=== PATIENT | male | born 1950 | race Caucasian/White ===

== ENCOUNTER 2018-02-06 16:21 | Emergency (ER) | payer BC, MEDICARE ==
--- NOTE | 2018-02-06 17:36 | EDM.PDOC ---
ED HPI GENERAL MEDICAL PROBLEM - General Chief Complaint: Gastrointestinal Problem Stated Complaint: FEEDING TUBE TROUBLE Time Seen by Provider: 02/06/18 17:31 Source of Information: Reports: Patient, Family History Limitations: Reports: No Limitations - History of Present Illness INITIAL COMMENTS - FREE TEXT/NARRATIVE: 67-year-old male has a gastrostomy feeding tube in place October this year. 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 He is just starting to eat now. His voice is returned to normal in his throat is no longer sore. What happened today is the sutures broke where was holding the feeding tube in place on his abdomen. Actually amazing may last as long as needed. So therefore good portion of the feeding tube seen to extrude from the ostomy. I assessment the balloon is still inflated as I cannot extract the feeding tube at this time. He has no pain or discomfort. Onset: Today Onset Date: 02/06/18 Onset Time: 16:30 Duration: Minutes: Location: Reports: Abdomen (Feeding tube came out of its normal position in the abdomen.) Quality: Reports: Other (He is in no pain or discomfort) Improves with: Reports: None Worsens with: Reports: None Context: Denies: Activity, Exercise, Lifting, Sick Contact, Trauma, Other Associated Symptoms: Reports: No Other Symptoms Treatments REVERSE ENGINEER: Reports: Other (see below) (None.) - Related Data Allergies Allergy/AdvReac Type Severity Reaction Status Date / Time No Known Allergies Allergy Verified 01/21/18 09:24 Home Meds: Home Meds Cyanocobalamin (Vitamin B-12) [Vitamin B-12] 1 tab PO DAILY 02/06/18 [History] Magnesium 200 mg PO DAILY 02/06/18 [History] atorvaSTATin Calcium [Atorvastatin Calcium] 80 mg PO DAILY 02/06/18 [History] metFORMIN HCl [Metformin HCl] 1,000 mg PO BID 02/06/18 [History] Past Medical History Cardiovascular History: Reports: High Cholesterol, Hypertension Endocrine/Metabolic History: Reports: Diabetes, Type II Oncologic (Cancer) History: Reports: Other (See Below) Other Oncologic History: throat diagnosed in August of this year. Then was started on radiotherapy and then chemotherapy. He developed such a severe sore throat with inability to swallow that a feeding gastrostomy tube was placed in October of this year. - Past Surgical History HEENT Surgical History: Reports: Other (See Below) Other HEENT Surgeries/Procedures: throat CA GI Surgical History: Reports: Other (See Below) Other GI Surgeries/Procedures: feeding tube Musculoskeletal Surgical History: Reports: Other (See Below) Other Musculoskeletal Surgeries/Procedures:: thumb amputation; left arm fx, surgery Social & Family History - Tobacco Use Smoking Status *Q: Never Smoker - Caffeine Use Caffeine Use: Reports: Coffee - Recreational Drug Use Recreational Drug Use: No - Living Situation & Occupation Living situation: Reports: Occupation: Employed ED ROS GENERAL - Review of Systems Review Of Systems: See Below Constitutional: Reports: Fatigue, Other (Slowly starting to gain weight back.). Denies: Fever, Chills, Malaise, Weakness HEENT: Reports: Other (Laryngeal or primary throat cancer treated with chemotherapy and radiation starting in late August 2017. Required a feeding gastrostomy tube that he is still utilizing. Although he is starting to now be able to swallow soft foods and fluids.) Respiratory: Reports: No Symptoms Cardiovascular: Reports: No Symptoms Endocrine: Reports: No Symptoms GI/Abdominal: Reports: Other (Has a feeding gastrostomy tube mid upper abdomen. The sutures that were holding the tube in place have broken. However when I tug on the tube the balloon is still inflated and it appears to be at least subcutaneous but I cannot tell if it's still in the stomach.) : Reports: No Symptoms Musculoskeletal: Reports: No Symptoms Skin: Reports: No Symptoms Neurological: Reports: No Symptoms ED EXAM, GI/ABD - Physical Exam Exam: See Below Exam Limited By: No Limitations General Appearance: WD/WN, Anxious Eyes: Bilateral: Normal Appearance (No jaundice) GI/Abdominal Exam: Other (Examination was primarily that of the abdomen. The feeding gastrostomy tube has been partially extruded you can see where the tube is very blackened from Hydrocort effect. Approximate 4 inches of the tubing is black. I cannot pull the tube out completely because the balloon is inflated. The problem is knowing whether or not the tube has extruded from the axial stomach. It is unlikely that it has been extruded from the stomach. He should have a well-formed tract after being in place for 3 months. However I will take him to x-ray with plan to place Gastrografin through the feeding tube to make sure that it is not been extruded from the stomach and no extravasation occurs.) Course - Vital Signs Last Recorded V/S: Last Vital Signs Temp 37.1 C 02/06/18 16:45 Pulse 78 02/06/18 16:45 Resp 18 02/06/18 16:45 BP 145/95 H 02/06/18 16:45 Pulse Ox 98 02/06/18 16:45 - Orders/Labs/Meds Orders: Active Orders 24 hr Category Date Time Status Fluoro Up To 1Hr [CR] Stat Exams 02/06/18 17:43 Taken Meds: Medications Discontinued Medications Generic Name Dose Route Start Last Admin Trade Name Freq PRN Reason Stop Dose Admin Diatrizoate Meglum/Diatrizoate Sod 60 ml 02/06/18 17:51 02/06/18 18:12 Gastrografin 37% PO 02/06/18 17:52 60 ml ONETIME ONE Administration Lidocaine HCl 10 ml 02/06/18 18:11 02/06/18 18:16 Xylocaine 1% INJECT 02/06/18 18:12 10 ml ONETIME ONE Administration - Radiology Interpretation Free Text/Narrative:: 67-year-old male presents to the ED with feeding tube problems. He has a feeding tube in place primarily because of development of throat cancer requiring radiotherapy and chemotherapy starting the end of August of this year. He developed such severe sore throat that he was unable to swallow at all and a feeding gastrostomy tube was placed in October of this year. Today the feeding tube moved out of its normal position. Sutures that were holding the tube in place broke from the surface of his skin. The feeding tube appears to be extruded about 4 inches as it is blackened from the effect of HCl in the stomach. However the balloon is still inflated and I cannot pull it out without deflating the balloon. Therefore i'm going to take him to x-ray to use fluoroscopy to identify that the feeding tube is still in adequate position in the stomach. It will then be decided whether or not to either replace the tube or remove it completely. Stability of needing a new feeding tube is evident. - Re-Assessments/Exams Free Text/Narrative Re-Assessment/Exam: 02/06/18 18:45 feeding tube assessment done by way of Gastrografin insertion through the feeding tube under fluoroscopic guidance in the x-ray suite. Initial films suggested that most of the Gastrografin was in the stomach however some of it appeared to possibly extubate state under the skin. I therefore was able to reinsert the feeding tube deep into the stomach with ease. I was unable to instill another 60 mils of Gastrografin and it filled the stomach. There was no extravasation. Patient was therefore brought back to the ED and I sutured the feeding tube to his abdominal wall at the 8 o'clock position compared to where it was sutured prior at the 6 o'clock position. It was sutured 2 to ensure that it does not come out again. Tentatively he may need this feeding tube for another 8-12 weeks. Patient will be discharged to home and allowed to use his feeding tube as per his usual. Departure - Departure Time of Disposition: 18:38 Disposition: Home, Self-Care 01 Condition: Fair Clinical Impression: Complication of feeding tube - Discharge Information Referrals: Flory Curry SHOE DRESSER [Primary Care Provider] - Forms: ED Department Discharge Additional Instructions: Evaluation the emergency room today in regards to dislodgment of feeding tube. Feeding tube is been in place since October after you received chemotherapy and radiotherapy to your throat for cancer treatments. Since you are still using the feeding tube primarily as her source of nutrition we felt it was essential to make sure the feeding tube was in appropriate position. You were therefore taken to the x-ray suite where under fluoroscopy were able to demonstrate a pigtail feeding tube stent in the appropriate position. Gastrografin that was interested instilled through the feeding tube went into the stomach and did not extravasate outside of the stomach. Therefore the feeding tube was pushed back into its presumed original position. I was unable to re-sutured to the abdominal wall 2. Treatment at home is the same as it was before. You make start to use her feeding tube immediately. Follow-up with primary care physician if any further problem's occur. - My Orders Last 24 Hours: My Active Orders 02/06/18 17:43 Fluoro Up To 1Hr [CR] Stat - Assessment/Plan Last 24 Hours: My Active Orders 02/06/18 17:43 Fluoro Up To 1Hr [CR] Stat ED GENERAL MEDICAL PROCEDURES - Additional/Other Procedure(s) Other (Free Text) Procedure(s): Evaluation of feeding tube dislodgment from the midabdomen. Taken to the x-ray suite and Gastrografin was placed through the feeding tube under fluoroscopic assessment to make sure that it had remained within the stomach. It was replaced back into the stomach and further Gastrografin 60 mils instilled. This stayed within the stomach. I then brought the patient back to the ED and sutured the feeding tube to his abdominal wall at the 8 o'clock position compared to where it was sutured prior at the 6 o'clock position.
[2018-02-06] MEDS ORDERED: Diatrizoate Meglumine/Diatrizoate Sodium 37% 120 ML Bottle PO ONE (17:51)
[2018-02-06] MEDS ORDERED: Lidocaine 1% 10 ML MDV INJECT ONE (18:11)
--- NOTE | 2018-02-07 08:33 | CR ---
Abdomen: Contrast has been injected through gastrostomy tube. Contrast is seen within the stomach. This confirms gastric tube is in proper position. Impression: 1. Findings as noted above. Diagnostic code #1
== END 2018-02-06 18:50 | disposition home or self-care (01) ==
LOC: JD.ED 16:21
DX: K94.22 Gastrostomy infection (principal); J02.9 Acute pharyngitis, unspecified; E11.9 Type 2 diabetes mellitus without complications; Z79.899 Other long term (current) drug therapy; Z79.84 Long term (current) use of oral hypoglycemic drugs
CPT/HCPCS: 43752; 76000; 99283; Q9963; 99284

== ENCOUNTER 2018-03-14 09:39 | Emergency (ER) | payer BC, MEDICARE ==
[2018-03-14] MEDS ORDERED: Lidocaine 1% 50 ML MDV INJECT ONE (11:11)
--- NOTE | 2018-03-14 11:14 | EDM.PDOC ---
ED HPI GENERAL MEDICAL PROBLEM - General Chief Complaint: Gastrointestinal Problem Stated Complaint: FEEDING TUBE CHECK Time Seen by Provider: 03/14/18 11:12 Source of Information: Reports: Patient History Limitations: Reports: No Limitations - History of Present Illness INITIAL COMMENTS - FREE TEXT/NARRATIVE: 67-year-old male presents for evaluation and treatment of complications with his feeding tube. 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 Reports last night the tube pulled on some clothing and the sutures holding in place came out. He states that it has not gone out any further than normal. The balloon is still in place. He has been using that and has not had any complications. He is primarily here for suture placement. Patient goes to [facility] for management of his laryngeal carcinoma. Plans to go there on Saturday further management of his G-tube. Patient reports he is taking foods and fluids orally but does not have much taste. patient reports primary care provider is Mica Curry. - Related Data Allergies Allergy/AdvReac Type Severity Reaction Status Date / Time No Known Allergies Allergy Verified 03/14/18 09:50 Home Meds: Home Meds Cyanocobalamin (Vitamin B-12) [Vitamin B-12] 1 tab PO DAILY 02/06/18 [History] Magnesium 200 mg PO DAILY 02/06/18 [History] atorvaSTATin Calcium [Atorvastatin Calcium] 80 mg PO DAILY 02/06/18 [History] metFORMIN HCl [Metformin HCl] 1,000 mg PO BID 02/06/18 [History] Past Medical History Cardiovascular History: Reports: High Cholesterol, Hypertension Endocrine/Metabolic History: Reports: Diabetes, Type II Oncologic (Cancer) History: Reports: Other (See Below) Other Oncologic History: throat diagnosed in August of this year. Then was started on radiotherapy and then chemotherapy. He developed such a severe sore throat with inability to swallow that a feeding gastrostomy tube was placed in October of this year. - Past Surgical History HEENT Surgical History: Reports: Other (See Below) Other HEENT Surgeries/Procedures: throat CA GI Surgical History: Reports: Other (See Below) Other GI Surgeries/Procedures: feeding tube Musculoskeletal Surgical History: Reports: Other (See Below) Other Musculoskeletal Surgeries/Procedures:: thumb amputation; left arm fx, surgery Social & Family History - Tobacco Use Smoking Status *Q: Never Smoker - Caffeine Use Caffeine Use: Reports: Coffee - Recreational Drug Use Recreational Drug Use: No - Living Situation & Occupation Living situation: Reports: Occupation: Employed ED ROS GENERAL - Review of Systems Review Of Systems: ROS reveals no pertinent complaints other than HPI. ED EXAM, GI/ABD - Physical Exam Exam: See Below Exam Limited By: No Limitations General Appearance: Alert, WD/WN, No Apparent Distress Respiratory/Chest: No Respiratory Distress GI/Abdominal Exam: Normal Bowel Sounds, Soft, Non-Tender, Other (Gastrostomy tube present to the medial right upper quadrant. Placement is satisfactory) Neurological: Alert, Oriented, Normal Cognition Psychiatric: Normal Affect, Normal Mood Skin Exam: Warm, Dry, Normal Color ED LACERATION PROCEDURES - Laceration/Wound Repair Ventral Abdomen Local Anesthetic Volume: 2cc Skin Prep: Chlorhexidine (Hibiciens) Suture Size: 4-0 # of Sutures: 2 Suture Type: Prolene, Simple Complications: No Course - Vital Signs Last Recorded V/S: Last Vital Signs Temp 98.2 F 03/14/18 09:48 Pulse 95 03/14/18 09:48 Resp 16 03/14/18 09:48 BP 179/85 H 03/14/18 09:48 Pulse Ox 99 03/14/18 09:48 - Orders/Labs/Meds Meds: Medications Discontinued Medications Generic Name Dose Route Start Last Admin Trade Name Donal PRN Reason Stop Dose Admin Lidocaine HCl 50 ml 03/14/18 11:11 03/14/18 11:48 Xylocaine 1% INJECT 03/14/18 11:12 50 ml ONETIME ONE Administration - Re-Assessments/Exams Free Text/Narrative Re-Assessment/Exam: 03/14/18 12:08 G-tube was secured with 2 sutures. Patient tolerated this well. No complications. Secured around the 7 o'clock position. Discharge instructions as documented. Departure - Departure Time of Disposition: 12:08 Disposition: Home, Self-Care 01 Condition: Good Clinical Impression: Complication of feeding tube - Discharge Information *PRESCRIPTION DRUG MONITORING PROGRAM REVIEWED*: No *COPY OF PRESCRIPTION DRUG MONITORING REPORT IN PATIENT SATISH: No Instructions: How to Care for a Feeding Tube, [id number] Referrals: Flory Curry BACK DIGGER OPERATOR [Primary Care Provider] - Forms: ED Department Discharge Additional Instructions: Recommend normal maintenance to your her G-tube. Recommend washing the area where the sutures are placed with gentle soap and water. May apply antibacterial ointment such as Neosporin or bacitracin. Continue with your current plan of care. Please return to the ER if your symptoms change or worsen.
== END 2018-03-14 12:33 | disposition home or self-care (01) ==
LOC: JD.ED 09:39
DX: K94.20 Gastrostomy complication, unspecified (principal); E11.9 Type 2 diabetes mellitus without complications; I10 Essential (primary) hypertension; Z79.899 Other long term (current) drug therapy
CPT/HCPCS: 99283

== ENCOUNTER 2018-04-02 12:23 | Emergency (ER) | payer BC, MEDICARE ==
--- NOTE | 2018-04-02 13:22 | EDM.PDOC ---
ED HPI GENERAL MEDICAL PROBLEM - General Chief Complaint: General Stated Complaint: STITCHES NEEDED IN FEEDING TUBE Time Seen by Provider: 04/02/18 12:42 Source of Information: Reports: Patient History Limitations: Reports: No Limitations - History of Present Illness INITIAL COMMENTS - FREE TEXT/NARRATIVE: Patient is a 68-year-old male with history of throat cancer who has a feeding tube in place. States he accidentally broke one of the sutures holding the feeding tube in place and is requesting having new sutures placed to hold the feeding tube in place so that it does not become dislodged. States the feeding tube is in proper positioning. It has not been dislodged with the recent breaking of a suture. He has no discomfort. No bleeding present. This is his third time he's broken a suture in the 3rd time he's been evaluated in the ED to have sutures placed. They're expecting the feeding tube will come out in one month. He offers no additional complaints. - Related Data Allergies Allergy/AdvReac Type Severity Reaction Status Date / Time No Known Allergies Allergy Verified 03/14/18 09:50 Home Meds: Home Meds Cyanocobalamin (Vitamin B-12) [Vitamin B-12] 1 tab PO DAILY 02/06/18 [History] Magnesium 200 mg PO DAILY 02/06/18 [History] atorvaSTATin Calcium [Atorvastatin Calcium] 80 mg PO DAILY 02/06/18 [History] metFORMIN HCl [Metformin HCl] 1,000 mg PO BID 02/06/18 [History] Past Medical History Cardiovascular History: Reports: High Cholesterol, Hypertension Endocrine/Metabolic History: Reports: Diabetes, Type II Oncologic (Cancer) History: Reports: Other (See Below) Other Oncologic History: throat diagnosed in August of this year. Then was started on radiotherapy and then chemotherapy. He developed such a severe sore throat with inability to swallow that a feeding gastrostomy tube was placed in October of this year. - Past Surgical History HEENT Surgical History: Reports: Other (See Below) Other HEENT Surgeries/Procedures: throat CA GI Surgical History: Reports: Other (See Below) Other GI Surgeries/Procedures: feeding tube Musculoskeletal Surgical History: Reports: Other (See Below) Other Musculoskeletal Surgeries/Procedures:: thumb amputation; left arm fx, surgery Social & Family History - Tobacco Use Smoking Status *Q: Never Smoker - Caffeine Use Caffeine Use: Reports: Coffee - Recreational Drug Use Recreational Drug Use: No - Living Situation & Occupation Living situation: Reports: Occupation: Employed ED ROS GENERAL - Review of Systems Review Of Systems: ROS reveals no pertinent complaints other than HPI. ED EXAM, GENERAL - Physical Exam Exam: See Below Exam Limited By: No Limitations General Appearance: Alert, WD/WN, No Apparent Distress Ears: Hearing Grossly Normal Nose: Normal Inspection Throat/Mouth: Normal Voice, No Airway Compromise Neck: Normal Inspection, Supple Respiratory/Chest: No Respiratory Distress, No Accessory Muscle Use Cardiovascular: Normal Peripheral Pulses, Regular Rate, Rhythm Peripheral Pulses: 2+: Radial (L) GI/Abdominal: Other (Feeding in place with old sutures present on the feeding tube. Feeding tube is not secured down. No pain with palpation. Per patient feeding tube is in proper positioning and has not been dislodged. Previous sites to the abdomen where sutures were holding the tube in place are in the late stages of healing with no concerns for infection. No bleeding, swelling. ) Neurological: Alert, Oriented, CN II-XII Intact, Normal Cognition Psychiatric: Normal Affect, Normal Mood Skin Exam: Warm, Dry, Normal Color ED GENERAL MEDICAL PROCEDURES - Additional/Other Procedure(s) Other (Free Text) Procedure(s): Resecured feeding tube to the abdomen with 2 #3.0 sutures. Anesthetized area with 1% lidocaine, 1 ml. Area was cleaned. A sterile dressing suturing took place. Minimal bleeding. No pain. Triple antibiotic ointment applied to the suture sites. Dressing placed per nursing staff. Discharge instructions as documented. The patient remained hemodynamically stable while under my care in the E.D. I discussed the concerning symptoms for which to returnto the E.D. with the patient. The patient verbalized understanding. All questions were answered. Course - Vital Signs Last Recorded V/S: Last Vital Signs Temp 98.5 F 04/02/18 12:39 Pulse 80 04/02/18 12:39 Resp 20 04/02/18 12:39 BP 140/71 04/02/18 12:39 Pulse Ox 99 04/02/18 12:39 - Re-Assessments/Exams Free Text/Narrative Re-Assessment/Exam: Resecured the feeding tube with 2 sutures to the abdomen with no complications. Discharge instructions as documented. The patient remained hemodynamically stable while under my care in the E.D. I discussed the concerning symptoms for which to returnto the E.D. with the patient. The patient verbalized understanding. All questions were answered. Departure - Departure Time of Disposition: 13:30 Disposition: Home, Self-Care 01 Condition: Good Clinical Impression: Complication of feeding tube - Discharge Information Referrals: Cathy Curry MD [Primary Care Provider] - Forms: ED Department Discharge Additional Instructions: Cleanse site as usual with soap and water, pat dry, may reapply to plan about ointment to the suture sites. Please return back to ED if he developed increased redness, swelling, pain, or drainage. Sutures to be removed per direction of oncologists.
== END 2018-04-02 14:00 | disposition home or self-care (01) ==
LOC: JD.ED 12:23
DX: K94.20 Gastrostomy complication, unspecified (principal); C32.9 Malignant neoplasm of larynx, unspecified; I10 Essential (primary) hypertension; E78.00 Pure hypercholesterolemia, unspecified; Z79.84 Long term (current) use of oral hypoglycemic drugs; Z79.899 Other long term (current) drug therapy
CPT/HCPCS: 12001; 99283; 99283-25

== ENCOUNTER 2019-08-17 06:54 | Day surgery (SDC) | payer BC, MEDICARE ==
[~2019-08-17 06:54] MED LIST: Lidocaine 1%/Sod Bicarbonate in NS 8.4% 1 ML Syringe IDERM PRN; Sodium Chloride 0.9% 10 ML Syringe FLUSH PRN
[2019-08-17] MEDS ORDERED: fentaNYL 250 MCG/5 ML SDV ONE (07:10)
[2019-08-17] MEDS ORDERED: Ondansetron 4 MG/2 ML SDV ONE (07:10)
[2019-08-17] MEDS ORDERED: Propofol 200 MG/20 ML SDV ONE (07:10)
[2019-08-17] MEDS ORDERED: Midazolam 1 MG/ML 2 ML SDV ONE (07:10)
[2019-08-17] MEDS ORDERED: Lidocaine 1% 4 ML ONE (07:11)
[2019-08-17] MEDS ORDERED: Lidocaine 1% 50 ML MDV ONE (07:19)
--- NOTE | 2019-08-17 07:37 | PCM.PREANE ---
Preanesthetic Assessment - Procedure Proposed Procedure: Laparoscopic right inguinal hernia repair - Anesthesia/Transfusion/Family Hx Anesthesia History: Prior Anesthesia Without Reaction Family History of Anesthesia Reaction: No Transfusion History: No Prior Transfusion(s) - Review of Systems General: No Symptoms Pulmonary: No Symptoms Cardiovascular: No Symptoms Gastrointestinal: No Symptoms Neurological: No Symptoms Other: Reports: Diabetes (pre diabetic BS this am is 114 @ 0730) - Physical Assessment NPO Status Date: 08/16/19 NPO Status Time: 19:00 Height: 1.68 m Weight: 65.7 kg ASA Class: 3 Mental Status: Alert & Oriented x3 Airway Class: Mallampati = 2 Dentition: Reports: [place](s), Broken Tooth/Teeth (top front) Thyro-Mental Finger Breadths: 2 Mouth Opening Finger Breadths: 3 ROM/Head Extension: Full Lungs: Clear to Auscultation, Normal Respiratory Effort Cardiovascular: Regular Rate, Regular Rhythm - Allergies Allergies/Adverse Reactions: Allergies Allergy/AdvReac Type Severity Reaction Status Date / Time No Known Allergies Allergy Verified 08/14/19 13:01 - Blood Blood Available: No Product(s) Available: None - Anesthesia Plan Pre-Op Medication Ordered: None - Acknowledgements Anesthesia Type Planned: General Anesthesia Pt an Appropriate Candidate for the Planned Anesthesia: Yes Alternatives and Risks of Anesthesia Discussed w Pt/Guardian: Yes Pt/Guardian Understands and Agrees with Anesthesia Plan: Yes PreAnesthesia Questionnaire HEENT History: Reports: Impaired Vision Cardiovascular History: Reports: High Cholesterol, Hypertension Respiratory History: Reports: Sleep Apnea Gastrointestinal History: Reports: Diverticulosis, Hemorrhoids Genitourinary History: Reports: None TRAFFIC OPERATOR History: Reports: None Neurological History: Reports: None Psychiatric History: Reports: None Endocrine/Metabolic History: Reports: Diabetes, Type II, Hypothyroidism Hematologic History: Reports: Anemia Immunologic History: Reports: None Oncologic (Cancer) History: Reports: Other (See Below) Other Oncologic History: throat diagnosed in August of 2018. Then was started on radiotherapy and then chemotherapy. He developed such a severe sore throat with inability to swallow that a feeding gastrostomy tube was placed in October of this year. Dermatologic History: Reports: Other (See Below) - Past Surgical History Head Surgeries/Procedures: Reports: None HEENT Surgical History: Reports: Other (See Below) Other HEENT Surgeries/Procedures: throat CA Cardiovascular Surgical History: Reports: None Respiratory Surgical History: Reports: None GI Surgical History: Reports: Colonoscopy, EGD, Other (See Below) Other GI Surgeries/Procedures: feeding tube Male Surgical History: Reports: Vasectomy Endocrine Surgical History: Reports: None Neurological Surgical History: Reports: None Musculoskeletal Surgical History: Reports: Other (See Below) Other Musculoskeletal Surgeries/Procedures:: thumb amputation; left arm fx, surgery Dermatological Surgical History: Reports: Skin Graft - SUBSTANCE USE Smoking Status *Q: Never Smoker Tobacco Use Within Last Twelve Months: No Second Hand Smoke Exposure: No Days Per Week of Alcohol Use: 1 Number of Drinks Per Day: 7 Total Drinks Per Week: 7 Recreational Drug Use History: No - HOME MEDS Home Medications: Home Meds Magnesium 200 mg PO DAILY 02/06/18 [History] atorvaSTATin Calcium [Atorvastatin Calcium] 80 mg PO DAILY 02/06/18 [History] metFORMIN HCl [Metformin HCl] 1,000 mg PO DAILY 02/06/18 [History] Ascorbate Calcium [Vitamin C] 500 mg PO DAILY 08/14/19 [History] Levothyroxine 50 mcg PO DAILY 08/14/19 [History] Ondansetron HCl [Zofran] 8 mg PO Q8H PRN 08/14/19 [History] Ubidecarenone [Coq-10] 100 mg PO DAILY 08/14/19 [History] lisinopriL [Lisinopril] 5 mg PO DAILY 08/14/19 [History] - CURRENT (IN HOUSE) MEDS Current Meds: Current Medications Lactated Ringer's (Ringers, Lactated) 1,000 mls @ 125 mls/hr IV ASDIRECTED TOMASA Stop: 08/17/19 23:00 Lidocaine/Sodium Bicarbonate (Buffered Lidocaine 1% In Ns 8.4%) 0.25 ml IDERM ONETIME PRN PRN Reason: Prior to IV Start Stop: 08/17/19 18:00 Sodium Chloride (Saline Flush) 10 ml FLUSH ASDIRECTED PRN PRN Reason: Keep Vein Open Stop: 08/17/19 18:00 Discontinued Medications Fentanyl (Sublimaze) Confirm Administered Dose 250 mcg .ROUTE .STK-MED ONE Stop: 08/17/19 07:11 Lidocaine HCl (Xylocaine-Mpf 1%) Confirm Administered Dose 4 mls @ as directed .ROUTE .STK-MED ONE Stop: 08/17/19 07:12 Lidocaine HCl (Xylocaine 1%) Confirm Administered Dose 50 ml .ROUTE .STK-MED ONE Stop: 08/17/19 07:20 Midazolam HCl (Versed 1 Mg/Ml) Confirm Administered Dose 2 mg .ROUTE .STK-MED ONE Stop: 08/17/19 07:11 Ondansetron HCl (Zofran) Confirm Administered Dose 4 mg .ROUTE .STK-MED ONE Stop: 08/17/19 07:11 Propofol (Diprivan 20 Ml) Confirm Administered Dose 200 mg .ROUTE .STK-MED ONE Stop: 08/17/19 07:11
[2019-08-17] MEDS: Lactated Ringers 1,000 ML IV SCH ×2 (07:45→11:07)
[2019-08-17] MEDS ORDERED: ceFAZolin 1 GM Vial ONE (08:28)
[2019-08-17] MEDS ORDERED: Rocuronium 100 MG/10 ML MDV ONE (08:32)
[2019-08-17] MEDS ORDERED: Succinylcholine/Normal Saline 100 MG/5 ML Syringe ONE (08:32)
[2019-08-17] MEDS ORDERED: ePHEDrine/Normal Saline 25 MG/5 ML Syringe ONE ×2 (08:33→10:14)
[2019-08-17] MEDS ORDERED: Ketorolac 30 MG/ML SDV ONE (08:58)
[2019-08-17] MEDS ORDERED: Dexamethasone 4 MG/ML 5 ML MDV ONE (08:58)
[2019-08-17] MEDS ORDERED: HYDROmorphone 0.5 MG/0.5 ML Syringe ONE (09:10)
[2019-08-17] MEDS ORDERED: Neostigmine Methylsulfate 1 MG/ML 5 ML Syringe ONE (10:43)
[2019-08-17] MEDS ORDERED: fentaNYL 100 MCG/2 ML SDV IVPUSH PRN (10:56)
--- NOTE | 2019-08-17 10:57 | PCM.POSTAN ---
POST ANESTHESIA ASSESSMENT - MENTAL STATUS Mental Status: Alert, Oriented - VITAL SIGNS Vital Signs: Last Vital Signs Temp 36.8 C 08/17/19 07:15 Pulse 78 08/17/19 07:15 Resp 16 08/17/19 07:15 BP 150/88 H 08/17/19 07:35 Pulse Ox 97 08/17/19 07:15 - RESPIRATORY Respiratory Status: Respiratory Rate WNL, Airway Patent, O2 Saturation Stable, Supplemental Oxygen - CARDIOVASCULAR CV Status: Pulse Rate WNL, Blood Pressure Stable - GASTROINTESTINAL GI Status: No Symptoms - PAIN Pain Score: 0 - POST OP HYDRATION Hydration Status: Adequate & Stable - OBSERVATIONS Free Text/Narrative:: no anesthesia complications noted
--- NOTE | 2019-08-17 14:47 | PCM48HPAN ---
Post Anesthesia Note - EVALUATION WITHIN 48HRS OF ANESTHETIC Vital Signs in Normal Range: Yes Patient Participated in Evaluation: Yes Respiratory Function Stable: Yes Airway Patent: Yes Cardiovascular Function Stable: Yes Hydration Status Stable: Yes Pain Control Satisfactory: Yes Nausea and Vomiting Control Satisfactory: Yes Mental Status Recovered: Yes Vital Signs: Last Vital Signs Temp 36.8 C 08/17/19 12:15 Pulse 96 08/17/19 13:15 Resp 16 08/17/19 13:15 BP 159/91 H 08/17/19 13:15 Pulse Ox 95 08/17/19 13:15 - COMMENTS/OBSERVATIONS Free Text/Narrative:: no anesthesia complications noted
--- NOTE | 2019-08-17 15:03 | OR ---
DATE OF OPERATION: 08/17/2019 SURGEON: Axel Yusuf MD PREOPERATIVE DIAGNOSIS: Right inguinal hernia, symptomatic. POSTOPERATIVE DIAGNOSIS: Right inguinal hernia, symptomatic. OPERATION PERFORMED: Laparoscopic right inguinal hernia repair with mesh. ESTIMATED BLOOD LOSS: 5 mL. ANESTHESIA: General endotracheal. FINDINGS: Medium-size right direct inguinal hernia. No hernia on the left side. COMPLICATIONS: None. INDICATIONS AND CONSENT: The patient is a 69-year-old male with history of head and neck cancer, status post chemo-rads that he completed about 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 The patient developed right inguinal bulge about 2 months ago that was getting bigger and causing him some pain. He presented to my office for evaluation, was evaluated, and the patient was found to have a right-sided inguinal hernia that was easily reducible. Recommended a laparoscopic repair, possible open. Discussed with the patient risks, benefits, and alternatives. Risks discussed included chronic pain, injury to the adjacent structures including blood vessels, vas deferens, nerves, bowel as well as wound complications, infection of the mesh, and the wound bleeding. The patient understood and all the questions were answered. Informed consent was obtained. DESCRIPTION OF PROCEDURE: The patient was taken to the operating room and placed in supine position. Following induction of general anesthesia, preop antibiotics consisting of Ancef were given. The patient's abdomen was shaved. A Rich catheter was placed. SCDs were placed. The patient was appropriately padded. Then, bilateral arms were tucked. Then, the abdomen was prepped and draped in the usual sterile fashion. Formal time-out was performed prior to the start of the procedure. We began the procedure by accessing the abdomen with a Veress needle through the infraumbilical incision. Then, a 10 Optiview trocar was placed under direct visualization of laparoscopy. Then, two 5 mm trocars were placed in either side of the umbilicus. Then, the abdomen was inspected. It was normal. The left- sided inguinal area was thoroughly inspected. There was no hernia. The right side was a medium-sided direct inguinal hernia, containing bowel and some omentum. The hernia contents were reduced completely, and the hernia sac was visualized. At this point, we proceeded with a transabdominal preperitoneal hernia repair. The peritoneum was incised about 5 cm cranial to the hernia defect. Preperitoneal space was developed medially all the way to the pubic tubercle and into the space under the pubic tubercle and then laterally, the dissection was carried out bluntly just to the anterior superior iliac spine. Then, the hernia sac was isolated and reduced with a combination of sharp and blunt dissection, so that the entire hernia sac was reduced. During this reduction, the vas deferens was clearly visualized and spared, as well as vessels and testicular structures were visualized and spared. Then, the peritoneum was peeled back about 5 cm below the hernia defect so as to reduce a chance for recurrence as the hernia sac sneaks under the mesh. Then, a 10 x 15 medium-weight polypropylene mesh was brought into the field and placed into the abdomen and positioned to cover the hernia sac. AbsorbaTack was used to fix the mesh medially just above the pubic tubercle and laterally about the anterior superior iliac spine with a few tacks. Once this was done, the mesh was visualized to be lying completely flat with adequate coverage of the hernia defect both medially and laterally as well as cranially and caudally. Once this was done, the peritoneum was reapproximated with tacks so that the entirety of the mesh was covered by the peritoneum. Once this was done, the procedure was concluded, insufflation was evacuated, and the fascia at the umbilical site was closed with 0 Vicryl stitches. The skin incision was approximated with 4-0 Monocryl sutures at all sites. The patient tolerated the procedure well. At the end of the procedure; instruments, sharps, and sponges were counted and found to be correct x2. The patient was awoken from general anesthesia and taken to the PACU for further recovery. The plan is for the patient to be discharged to home today. The patient is to have weight restriction of lifting no more than 20 pounds for 2 weeks. The patient to come back in clinic in 2 weeks to see me for postop check. MMODAL /[id number]
== END 2019-08-17 16:27 | disposition home or self-care (01) ==
LOC: JD.SDS 06:54
PROVIDERS: ATTEND Surgery
DX: K40.90 Unilateral inguinal hernia, without obstruction or gangrene, not specified as recurrent (principal); E11.9 Type 2 diabetes mellitus without complications; E78.5 Hyperlipidemia, unspecified; I10 Essential (primary) hypertension; Z79.84 Long term (current) use of oral hypoglycemic drugs; Z79.899 Other long term (current) drug therapy
CPT/HCPCS: 49650; 82962; J0330; J0690; J1100; J1170; J1885; J2001; J2250; J2405; J2704; J2710; J3010; J7050; J7120; C1781

== ENCOUNTER 2024-03-31 07:07 | Day surgery (SDC) | payer BC ==
[~2024-03-31 07:07] MED LIST changes: +HYDROmorphone 0.5 MG/0.5 ML Syringe IVPUSH PRN; -Lidocaine 1%/Sod Bicarbonate in NS 8.4% 1 ML Syringe IDERM PRN; +Ondansetron 4 MG/2 ML SDV IVPUSH PRN; +Sodium Chloride 0.9% 10 ML Syringe FLUSH SCH; +fentaNYL 100 MCG/2 ML SDV IVPUSH PRN
[2024-03-31] MEDS ORDERED: Propofol 200 MG/20 ML SDV ONE ×4 (07:20)
[2024-03-31] MEDS ORDERED: Lidocaine 2% 5 ML SDV ONE (07:21)
[2024-03-31] MEDS: Lactated Ringers 1,000 ML IV SCH (07:30)
[2024-03-31] MEDS ORDERED: Sodium Chloride 0.9% 100 ML ONE (08:05)
[2024-03-31] MEDS ORDERED: Phenylephrine 1% 10 MG/ML SDV ONE (08:06)
== END 2024-03-31 09:17 | disposition home or self-care (01) ==
LOC: JD.SDS 07:07
PROVIDERS: ATTEND Surgery
DX: Z12.11 Encounter for screening for malignant neoplasm of colon (principal); D12.0 Benign neoplasm of cecum; K29.80 Duodenitis without bleeding; K26.9 Duodenal ulcer, unspecified as acute or chronic, without hemorrhage or perforation; K29.50 Unspecified chronic gastritis without bleeding; B96.81 Helicobacter pylori [H. pylori] as the cause of diseases classified elsewhere; K20.90 Esophagitis, unspecified without bleeding; K57.30 Diverticulosis of large intestine without perforation or abscess without bleeding; K64.0 First degree hemorrhoids; E11.9 Type 2 diabetes mellitus without complications; E78.00 Pure hypercholesterolemia, unspecified; I10 Essential (primary) hypertension; E03.9 Hypothyroidism, unspecified; Z79.899 Other long term (current) drug therapy; Z79.890 Hormone replacement therapy
CPT/HCPCS: 43239; 45385; J2371; J2704; J3490; J7120; 00813; 99100

== ENCOUNTER 2024-06-07 12:06 | Emergency (ER) | payer BC ==
[2024-06-07 12:44] LABS: BASOPHILS PERCENT AUTO 0.2 % (0.0-1.0); EOSINOPHILS PERCENT AUTO 0.5 % (0.0-6.0); HEMATOCRIT 37.2 % (42.0-52.0); HEMOGLOBIN 12.1 gm/dl (14.0-18.0); IMMATURE GRAN ABSOLUTE AUTO 0.02 K/mm3 (0.00-0.05); IMMATURE GRAN PERCENT AUTO 0.3 % (0.0-0.4); LYMPHOCYTES ABSOLUTE AUTO 1.1 K/mm3 (1.0-4.8); LYMPHOCYTES PERCENT AUTO 17.2 % (24.0-44.0); MEAN CORPUSCULAR HEMOGLOBIN 32.5 pg (28.0-32.0); MEAN CORPUSCULAR HGB CONC 32.5 g/dl (32.0-36.0); MEAN PLATELET VOLUME 10.1 fl (9.4-12.4); MONOCYTES ABSOLUTE AUTO 0.4 K/mm3 (0.0-0.8); MONOCYTES PERCENT AUTO 6.9 % (0.0-8.0); NEUTROPHILS ABSOLUTE AUTO 4.6 K/mm3 (1.8-7.7); NEUTROPHILS PERCENT AUTO 74.9 % (41.0-71.0); PLATELET COUNT,PLT 233 K/mm3 (150-400); RED BLOOD CELL COUNT 3.72 M/mm3 (4.52-5.90); WHITE BLOOD CELL COUNT,WBC 6.12 K/mm3 (3.9-11.3)
[2024-06-07] MEDS: Sodium Chloride 0.9% 1,000 ML IV SCH (12:54)
[2024-06-07] MEDS: Metoclopramide 10 MG/2 ML SDV IVPUSH ONE (12:56)
[2024-06-07] MEDS: LORazepam 2 MG/ML SDV IVPUSH ONE (12:56)
[2024-06-07 13:04] LABS: ALANINE AMINOTRANSFERASE,ALT 19 U/L (16-63); ALKALINE PHOSPHATASE 119 U/L (46-116); ANION GAP 13.8 (5-15); ASPARTATE AMNIOTRANSFERASE,AST 14 U/L (15-37); BILIRUBIN TOTAL 0.9 mg/dL (0.2-1.0); BLOOD UREA NITROGEN,BUN 14 mg/dL (7-18); BUN/CREATININE RATIO 10.8 (14-18); C-REACTIVE PROTEIN 0.23 mg/dL (<0.30); CALCIUM 9.5 mg/dL (8.5-10.1); CARBON DIOXIDE,CO2 31 mEq/L (21-32); CHLORIDE,CL 100 mEq/L (98-107); CREATININE 1.3 mg/dL (0.7-1.3); ESTIMATED GFR 58 mL/min (>60); GLUCOSE RANDOM 216 mg/dL (70-99); MAGNESIUM 1.6 mg/dL (1.8-2.4); POTASSIUM,K 3.8 mEq/L (3.5-5.1); PROTEIN TOTAL,TP 7.9 g/dl (6.4-8.2); SODIUM,NA 141 mEq/L (136-145)
== END 2024-06-07 15:36 | disposition home or self-care (01) ==
LOC: JD.ED 12:06
DX: H81.12 Benign paroxysmal vertigo, left ear (principal); E03.9 Hypothyroidism, unspecified; E78.00 Pure hypercholesterolemia, unspecified; I10 Essential (primary) hypertension; E11.9 Type 2 diabetes mellitus without complications; Z79.899 Other long term (current) drug therapy; Z79.84 Long term (current) use of oral hypoglycemic drugs
CPT/HCPCS: 36415; 70450; 70450-26; 80053; 82947; 83036; 83735; 84443; 85025; 86140; 93005; 93010; 96361; 96374; 96375; 99284; 99285-25; J2060; J2765; J7030